=== PATIENT | female | born 1995 | race Caucasian/White ===

== ENCOUNTER 2022-07-28 14:16 | Emergency (ER) | payer SELFPAY ==
[~2022-07-28] VITALS: Ht 177.8 cm; Wt 57.6 kg
--- NOTE | 2022-07-28 14:25 | NUR ---
C/o laceration on the forehead s/p hit head on the bathroom sink, no loc, 10 ps.
[2022-07-28] MEDS ORDERED: LIDOCAINE 1% INJ 50 ML MDV IJ ONE ×2 (15:00→15:07)
[2022-07-28] MEDS ORDERED: ACETAMINOPHEN 325 MG TABLET PO ONE (15:00)
[2022-07-28] MEDS ORDERED: BACI/NEOM/POLY B OINT PKT 1 UDPKT PACKET TP ONE (15:00)
[2022-07-28] MEDS ORDERED: TDAP [DIPH/PERTUSSIS/TET] 0.5 ML VIAL IM ONE ×2 (15:00→15:08)
[2022-07-28] MEDS ORDERED: BACI/NEOM/POLY B OINT PKT 1 UDPKT PACKET ONE (15:07)
[2022-07-28] MEDS ORDERED: ACETAMINOPHEN 325 MG TABLET ONE (15:08)
--- NOTE | 2022-07-28 15:30 | NUR ---
md at bedside for eval and lac repair.
[2022-07-28 15:47] VITALS: BP 135/88
--- NOTE | 2022-07-28 15:49 | NUR ---
Patient discharged to home in stable condition. Written and verbal after care instructions given. Patient verbalizes understanding of instruction.
== END 2022-07-28 15:49 | disposition home or self-care (01) ==
LOC: ER 14:17
DX: S01.81XA Laceration without foreign body of other part of head, initial encounter (principal); Z88.8 Allergy status to other drugs, medicaments and biological substances; W01.198A Fall on same level from slipping, tripping and stumbling with subsequent striking against other object, initial encounter; Y93.89 Activity, other specified; Y92.89 Other specified places as the place of occurrence of the external cause; Y99.8 Other external cause status
CPT/HCPCS: 99282; 12011; J3490; A6403; 90715